=== PATIENT | male | born 1935 | race Caucasian/White ===

== ENCOUNTER 2016-07-17 13:09 | Day surgery (SDC) | payer MEDICARE ==
[2016-07-15 14:08] VITALS: BMI 32.5
[~2016-07-17 13:09] MED LIST: LACTATED RINGERS 1,000 ML IV SCH
[2016-07-17] MEDS ORDERED: LACTATED RINGERS 1,000 ML IV ONE (13:21)
[2016-07-17 13:30] VITALS: TEMP 98.2
[2016-07-17] MEDS ORDERED: LIDOCAINE 1% 20 ML VIAL (10MG/ML) FOR IV START INTRADERMA ONE (13:36)
[2016-07-17] MEDS ORDERED: PROPOFOL 10 MG/ML 20 ML VIAL IV ONE (13:46)
[2016-07-17] MEDS ORDERED: LIDOCAINE 1% INJ 10MG/ML (20 ML MDV) ONE (13:46)
--- NOTE | 2016-07-17 14:30 | P.GSHP ---
History of Present Illness H&P Date: 07/17/16 Chief Complaint: Anemia Patient here today for colonoscopy. He had an attempted a colonoscopy in March. At the time patient's prep was suboptimal. Denies rectal bleeding or melena. He took a to day colonic prep at this time. Past Medical History Past Medical History: GERD/Reflux, Hyperlipidemia, Hypertension, Prostate Disorder, Thyroid Disorder Additional Past Medical History / Comment(s): COLON POLYPS. History of Any Multi-Drug Resistant Organisms: None Reported Past Surgical History: Prostate Surgery Additional Past Surgical History / Comment(s): 3 PREVIOUS TURPs r/t enlarged prostate,HEMORRHOIDECTOMY, JOSE RAUL CATARACTS Past Anesthesia/Blood Transfusion Reactions: No Reported Reaction Past Psychological History: No Psychological Hx Reported Smoking Status: Former smoker Past Alcohol Use History: Daily Additional Past Alcohol Use History / Comment(s): STARTED SMOKING AT AGE 19 QUIT 1993 SMOKED 1/2PPD AND A PIPE Past Drug Use History: None Reported - Past Family History Mother Family Medical History: No Reported History Medications and Allergies Home Medications Medication Instructions Recorded Confirmed Type Atorvastatin [Lipitor] 10 mg PO QAM 04/11/14 07/15/16 History Levothyroxine Sodium [Synthroid] 150 mcg PO QAM 04/11/14 07/15/16 History Pantoprazole Sodium [Protonix] 1 tab PO QAM 04/11/14 07/15/16 History Aspirin [Adult Low Dose Aspirin EC] 81 mg PO DAILY 11/28/15 07/15/16 History Docusate [Colace] 300 mg PO HS 11/28/15 07/15/16 History Multivitamins, Thera [Multivitamin] 1 tab PO DAILY 03/11/16 07/15/16 History Ferrous Sulfate [Feosol] 325 mg PO DAILY 07/15/16 07/15/16 History Lactulose [Cephulac] 20 gm PO BID PRN 07/15/16 07/15/16 History Losartan [Cozaar] 50 mg PO DAILY 07/15/16 07/15/16 History Allergies Allergy/AdvReac Type Severity Reaction Status Date / Time codeine Allergy Rash/Hives Verified 07/15/16 13:50 kiwi AdvReac Nausea & Verified 07/15/16 13:50 Vomiting Surgical - Exam Vital Signs Temp Pulse Resp BP Pulse Ox 98.2 F 67 18 170/80 98 07/17/16 13:23 07/17/16 13:23 07/17/16 13:23 07/17/16 13:23 07/17/16 13:23 Physical exam: General: Well-developed, well-nourished HEENT: Normocephalic, sclerae nonicteric Abdomen: Nontender, nondistended Extremities: No edema Neuro: Alert and oriented Assessment and Plan (1) Colon cancer screening Narrative/Plan: Will proceed with colonoscopy at this time. Status: Acute
--- NOTE | 2016-07-17 14:32 | P.PCN ---
Date of Procedure: 07/17/16 Procedure(s) Performed: PREOPERATIVE DIAGNOSIS: Anemia POSTOPERATIVE DIAGNOSIS: Cecal polyp, slightly thickened ascending colon fold, diverticulosis PROCEDURE: Colonoscopy with snare polypectomy ANESTHESIA: MAC SURGEON: Cosmo Law M.D. SPECIMENS: Cecal polyp, thickened fold ENDOSCOPIC PROCEDURE: The patient was placed on the endoscopy table in the left decubitus position. The Olympus colonoscope was inserted into the anus and passed under direct visualization to the base of the cecum. The appendiceal orifice was visualized. From that point the scope was slowly withdrawn inspecting all surfaces carefully. There was a sessile polyp in the base of the cecum. This measured about 1-1.5 cm in size. This was removed in a piecemeal fashion using the snare with cautery technique. This appeared as an unlikely source of anemia. In the mid ascending colon one of the folds was slightly thickened and a biopsy was taken to rule out adenomatous tissue. The remainder of the ascending, transverse, descending, sigmoid and rectum appeared normal. There was mild diverticulosis noted. Digital rectal examination was normal. The patient was taken to the recovery room in stable condition per anesthesia guidelines. RECOMMENDATIONS: Await biopsy results. Continue anemia workup.
[2016-07-17] MEDS ORDERED: hydrALAZINE HCL 20 MG/ML 1 ML VIAL IV ONE ×2 (15:05→15:33)
[2016-07-17 15:28] VITALS: PULSE 70
[2016-07-17 15:44] VITALS: BP 163/82; RESP 16
== END 2016-07-17 15:54 | disposition home or self-care (01) ==
LOC: ORWHC2ENDO 13:09
PROVIDERS: ATTEND Surgery
DX: K57.30 Diverticulosis of large intestine without perforation or abscess without bleeding (principal); D12.0 Benign neoplasm of cecum; Z86.010 Personal history of colon polyps; D64.9 Anemia, unspecified; K21.9 Gastro-esophageal reflux disease without esophagitis; E78.5 Hyperlipidemia, unspecified; I10 Essential (primary) hypertension; E07.9 Disorder of thyroid, unspecified; Z87.891 Personal history of nicotine dependence; Z79.82 Long term (current) use of aspirin; Z79.899 Other long term (current) drug therapy; Z88.5 Allergy status to narcotic agent; Z91.018 Allergy to other foods
CPT/HCPCS: 88305; 45380; 45385; J0360; J2001; J2704

== ENCOUNTER → 2018-02-22 | Outpatient (CLI) | payer MEDICARE ==
--- NOTE | 2018-02-22 10:51 | XR ---
Left hip HISTORY: Left hip pain 2 views of the left hip There is bony excrescence along the lateral aspect of the femoral head. Bone mineralization and align ment are maintained, question some mild joint space loss. No fracture or dislocation. Vascular calcif ications are noted incidentally. Question some calcification at the insertion of the gluteal tendons at the greater trochanter. IMPRESSION: Findings may be due to osteoarthritis, correlate for femoral acetabular impingement. Ther e may be calcific tendinitis.
--- NOTE | 2018-02-22 10:53 | XR ---
Left ankle HISTORY: Left ankle pain 3 views of the left ankle There is soft tissue swelling present. Small ossific densities are present distal to the medial malle olus which are well-corticated and felt likely to be chronic, due to prior remote trauma. Alignment a nd bone mineralization are maintained. No fracture or dislocation. Small plantar spur noted at the ca lcaneus, there is an enthesophyte at the insertion of the Achilles tendon. Spurring present at the ti biotalar joint, intertarsal joints. IMPRESSION: Osteoarthritis, soft tissue swelling. Correlate for history of trauma. Additional finding s above.
== END ==
LOC: RADXRMAIN 08:58
PROVIDERS: ATTEND Internal Medicine
DX: M25.572 Pain in left ankle and joints of left foot (principal)
CPT/HCPCS: 73502